=== PATIENT | female | born 1960 | race Two or more races ===

== ENCOUNTER 2016-12-18 17:17 | Emergency (ER) | payer OTHER ==
[~2016-12-18] VITALS: Ht 149.9 cm; Wt 63.5 kg
--- NOTE | 2016-12-18 17:55 | NUR ---
AAOX3, CAME TO ER C/O COUGH, CONGESTION, AND FEVER, SEEN IN ED YESTERDAY WITH NO RELIEF. RR IS EVEN AND UNLABORED WITH NAD NOTED. SKIN IS WARM AND NON DIAPHORETIC. AWAITING MD FOR EVAL.
--- NOTE | 2016-12-18 17:56 | NUR ---
DR LOMAS AT BS FOR EVAL.
[2016-12-18] MEDS ORDERED: IBUPROFEN 600 MG TABLET PO ONE ×2 (18:00→18:01)
[2016-12-18] MEDS ORDERED: CEFTRIAXONE 1GM BAG (ER ONLY) 1 GM/50 ML PIGGYBACK IV ONE (18:00)
[2016-12-18] MEDS ORDERED: IV NS 0.9% 1,000 ML ONE (18:08)
[2016-12-18] MEDS ORDERED: IV SET PRIMARY PUMP SET 1 EA INFUS.SET MC ONE (18:08)
[2016-12-18] MEDS ORDERED: CEFTRIAXONE 1GM BAG (ER ONLY) 50 ML IV ONE ×2 (18:08→18:39)
[2016-12-18] MEDS ORDERED: IV SET PRIMARY 1 EA INFUS.SET MC ONE (18:08)
--- NOTE | 2016-12-18 18:15 | NUR ---
BLOOD CULTURE WAS DRAWN YESTERDAY 12/17/16
[2016-12-18] MEDS ORDERED: IV NS 0.9% 1,000 ML BAG IV ONE (18:30)
--- NOTE | 2016-12-18 19:02 | NUR ---
REPORT GIVEN TO GAVIN SEGUNDO FOR JATIN
--- NOTE | 2016-12-18 19:06 | NUR ---
RECEIVED REPORT FROM GAVIN SUTTON FOR JATIN.
[2016-12-18] MEDS ORDERED: ACETAMINOPHEN ES 500 MG TABLET ONE (19:29)
--- NOTE | 2016-12-18 19:29 | NUR ---
INFORMED DR. LOMAS CURRENT TEMP. VERBAL ORDERS TO GIVE TYLENOL 1GM PO ONE TIME NOW.
[2016-12-18] MEDS ORDERED: ACETAMINOPHEN ES 500 MG TABLET PO ONE (19:30)
--- NOTE | 2016-12-18 19:42 | NUR ---
CALLED PATIENT'S SON NOTIFYING HIM THAT PATIENT IS DISCHARGED AND READY TO BE PICKED UP, HE STATES HE WILL BE HERE SOON.
--- NOTE | 2016-12-18 20:22 | NUR ---
IV removed. Catheter intact and site benign. Pressure and 4x4 applied to site. No bleeding noted. Patient discharged to home in stable condition. Written and verbal after care instructions given. Patient verbalizes understanding of instruction. ambulatory with a steady gait
[2016-12-18 20:23] VITALS: BP 145/74
== END 2016-12-18 20:24 | disposition home or self-care (01) ==
LOC: ER 17:19
DX: J18.9 Pneumonia, unspecified organism (principal)
CPT/HCPCS: 96365; 99284; A4606; J0696 ×2; J7030; Z7610